=== PATIENT | female | born 1995 | race Caucasian/White ===

== ENCOUNTER 2020-05-31 15:17 | Outpatient (CLI) | payer OTHER, SELFPAY ==
--- NOTE | ~2020-05-31 | US_ITS ---
EXAMINATION: US OB <= 14 weeks fetus DATE: 05/31/2020 16:17 INDICATION: Amenorrhea. TECHNIQUE: Real-time transabdominal pelvic ultrasound was performed. COMPARISON: None. FINDINGS: The uterus measures 13.9 x 7.5 x 6.8 cm. There is an intrauterine gestational sac. A yolk sac is iden tified. The crown rump length measures 3.4 cm, which correlates with an estimated gestational age of 10 weeks and 2 day(s) (+/-) 6 day(s). heart motion is identified measuring 169 beats per minute (bpm) by M-mode Doppler. The right ovary measures 2.3 x 1.7 x 1.5 cm. The left ovary is not v isualized. There is no free fluid in the pelvis. IMPRESSION: 1. Single living intrauterine gestation with estimated date of delivery of 12/25/2020. Reviewed, dictated and finalized at location A. IMPRESSION: 1. Single living intrauterine gestation with estimated date of delivery of 12/25.
== END 2020-05-31 15:18 | disposition home or self-care (01) ==
PROVIDERS: Visit Provider Student in an Organized Health Care Education/Training Program
DX: N91.2 Amenorrhea, unspecified (principal)
CPT/HCPCS: 76801

== ENCOUNTER 2020-07-11 15:32 | Outpatient (CLI) | payer OTHER, SELFPAY ==
[2020-07-11 16:52] LABS: Add Urine Microscopic? NO; Appearance Urine Clear (Clear); Bilirubin Urine Negative (Negative); Blood Urine Negative (Negative); Color Urine Straw (Yellow); Glucose Urine UA Negative (Negative); Ketones Urine Negative (Negative); Leukocyte Esterase Ur Negative LEU/UL (NEGATIVE); Nitrate Urine Negative (Negative); Protein Urine Negative (Negative); Specific Grav Ur 1.013 (1.001-1.035); Urobilinogen Urine Negative mg/dL (<2.0)
[2020-07-11 17:42] LABS: Basophils Absolute Auto 0.1 K/mm3 (0.0-0.1); Basophils Percent Auto 0.5 % (0.2-1.2); Eosinophils Absolute Auto 0.1 K/mm3 (0-0.3); Eosinophils Percent Auto 0.9 % (0-4.4); Immature Granulocyte Absolute 0.05 K/mm3 (0.00-0.031); Immature Granulocyte Percent A 0.5 % (0-0.5); Lymphocytes Absolute Auto 2.37 K/mm3 (0.9-3.2); Lymphocytes Percent Auto 22.5 % (18.3-44.2); Mean Corpuscular HGB Conc 33.3 g/dl (32-36); Mean Corpuscular Hemoglobin 28.6 pg (26-34); Mean Corpuscular Volume 85.9 fl (80-100); Mean Platelet Volume 10.4 fl (7.4-10.4); Monocytes Absolute Auto 0.7 K/mm3 (0.1-0.6); Neutrophils Absolute Auto 7.2 K/mm3 (1.3-6.7); Neutrophils Percent Auto 68.6 % (45.5-73.1); Platelet Count Result 272 k/mm3 (150-375); Red Blood Count 3.84 M/mm3 (4.2-5.4); Red Cell Distribution Width 12.9 % (11.5-14.5); White Blood Count 10.5 K/mm3 (4.5-10.0)
[2020-07-11 17:51] LABS: Vitamin D 25 Hydroxy 45.1 ng/mL
[2020-07-11 18:07] LABS: Hepatitis B Surface Antigen Negative (Negative); Rubella IgG Antibody 4.4 IU/ML
[2020-07-11 18:23] LABS: Hepatitis C Virus Antibody Negative (Negative)
[2020-07-12 09:36] LABS: Rapid Plasma Reagin Non-Reactive (NonReactive)
[2020-07-14 14:38] LABS: Varicella IgG Antibody <135.00 Index (>=165.00)
[2020-07-17 10:03] LABS: Hematocrit 33.8 % (35.0-45.0); Hemoglobin 11.3 g/dL (11.7-15.5); MCV 86.9 FL (80.0-100.0); RDW 13.6 % (11.0-15.0); Red Blood Cell Count 3.89 Mill/uL (3.80-5.10)
== END 2020-07-11 15:33 | disposition home or self-care (01) ==
PROVIDERS: Family Provider Student in an Organized Health Care Education/Training Program; Visit Provider Student in an Organized Health Care Education/Training Program
DX: Z34.90 Encounter for supervision of normal pregnancy, unspecified, unspecified trimester (principal); Z3A.00 Weeks of gestation of pregnancy not specified
CPT/HCPCS: 36415; 81003; 82306; 83021; 84443; 85025; 86592; 86762; 86787; 86803; 87086; 87340

== ENCOUNTER 2020-09-11 08:58 | Outpatient (CLI) | payer OTHER, SELFPAY ==
[2020-09-11 10:40] LABS: Basophils Percent Auto 0.4 % (0.2-1.2); Eosinophils Absolute Auto 0.1 K/mm3 (0-0.3); Eosinophils Percent Auto 0.5 % (0-4.4); Hematocrit 26.1 % (37.0-47.0); Hemoglobin 8.3 g/dL (12.0-15.0); Immature Granulocyte Absolute 0.17 K/mm3 (0.00-0.031); Immature Granulocyte Percent A 1.5 % (0-0.5); Lymphocytes Absolute Auto 1.74 K/mm3 (0.9-3.2); Lymphocytes Percent Auto 15.4 % (18.3-44.2); Mean Corpuscular HGB Conc 31.8 g/dl (32-36); Mean Corpuscular Hemoglobin 26.9 pg (26-34); Mean Corpuscular Volume 84.7 fl (80-100); Mean Platelet Volume 9.4 fl (7.4-10.4); Monocytes Absolute Auto 0.7 K/mm3 (0.1-0.6); Monocytes Percent Auto 6.4 % (2.6-8.5); Neutrophils Absolute Auto 8.6 K/mm3 (1.3-6.7); Neutrophils Percent Auto 75.8 % (45.5-73.1); Platelet Count Result 259 k/mm3 (150-375); Red Blood Count 3.08 M/mm3 (4.2-5.4); Red Cell Distribution Width 13.2 % (11.5-14.5); White Blood Count 11.3 K/mm3 (4.5-10.0)
[2020-09-11 10:49] LABS: Glucose 1 Hour PP 50gm Dose 100 mg/dL
== END 2020-09-11 08:59 | disposition home or self-care (01) ==
PROVIDERS: Visit Provider Student in an Organized Health Care Education/Training Program
DX: Z34.90 Encounter for supervision of normal pregnancy, unspecified, unspecified trimester (principal)
CPT/HCPCS: 36415; 82947; 85025; 86850; 86900; 86901

== ENCOUNTER 2020-10-23 10:58 | Outpatient (CLI) | payer OTHER, SELFPAY ==
[2020-10-23 11:25] LABS: Basophils Absolute Auto 0.1 K/mm3 (0.0-0.1); Basophils Percent Auto 0.4 % (0.2-1.2); Eosinophils Absolute Auto 0.1 K/mm3 (0-0.3); Eosinophils Percent Auto 1.1 % (0-4.4); Hematocrit 26.2 % (37.0-47.0); Hemoglobin 8.2 g/dL (12.0-15.0); Immature Granulocyte Absolute 0.46 K/mm3 (0.00-0.031); Immature Granulocyte Percent A 3.7 % (0-0.5); Lymphocytes Absolute Auto 1.97 K/mm3 (0.9-3.2); Lymphocytes Percent Auto 15.9 % (18.3-44.2); Mean Corpuscular HGB Conc 31.3 g/dl (32-36); Mean Corpuscular Hemoglobin 25.2 pg (26-34); Mean Corpuscular Volume 80.4 fl (80-100); Monocytes Absolute Auto 1.1 K/mm3 (0.1-0.6); Monocytes Percent Auto 8.6 % (2.6-8.5); Neutrophils Absolute Auto 8.7 K/mm3 (1.3-6.7); Neutrophils Percent Auto 70.3 % (45.5-73.1); Nucleated Red Blood Cells Perc 0.2 % (0.0-0.2); Platelet Count Result 266 k/mm3 (150-375); Red Blood Count 3.26 M/mm3 (4.2-5.4); Red Cell Distribution Width 14.8 % (11.5-14.5); White Blood Count 12.4 K/mm3 (4.5-10.0)
[2020-10-23 12:21] LABS: Iron 29 ug/dL (37-170)
[2020-10-23 12:31] LABS: Percent Iron Saturation 5 % (20-50)
[2020-10-23 12:36] LABS: HIV 1/2 Ab P24 Ag Result Negative (Negative)
[2020-10-23 12:52] LABS: Ferritin 5.95 ng/mL (6.24-137)
[2020-10-24 13:34] LABS: Rapid Plasma Reagin Non-Reactive (NonReactive)
== END 2020-10-23 10:59 | disposition home or self-care (01) ==
LOC: ANHLAB 11:00
PROVIDERS: Visit Provider Student in an Organized Health Care Education/Training Program
DX: Z34.83 Encounter for supervision of other normal pregnancy, third trimester (principal); D64.9 Anemia, unspecified; Z3A.00 Weeks of gestation of pregnancy not specified
CPT/HCPCS: 36415; 82728; 83540; 83550; 85025; 86592; 86703; G0432

== ENCOUNTER 2020-12-14 05:54 | Inpatient (IN) | payer OTHER, SELFPAY ==
[2020-12-14] VITALS (77 sets, daily range): BP systolic 98–128; BP diastolic 28–88; PULSE 64–149; RESP 16–18; TEMP 36.4–37.2; O2SAT 97–100; BMI 35.5
--- NOTE | 2020-12-14 05:54 | LDADM ---
This patient, Duncan Reveles, was admitted to Labor/Delivery/Recovery 104 on 12/14/20 at 05:54. Plans for labor, pain management and were discussed with patient. Patient/family oriented to hospital policies and general routines including ID bracelet, bed and alarms, visiting hours, pain management, procedures, bathroom and other care routines, personal items, smoking policy, room service/diet and guest tray routines, security routines, and visiting hours. Patient/Family are encouraged to report perceived risks to care and to ask questions if they do not understand what they are told or what they should do. See OBIX for further documentation.
[2020-12-14 06:39] LABS: Basophils Absolute Auto 0.1 K/mm3 (0.0-0.1); Basophils Percent Auto 0.7 % (0.2-1.2); Eosinophils Absolute Auto 0.1 K/mm3 (0-0.3); Eosinophils Percent Auto 1.1 % (0-4.4); Hematocrit 33.7 % (37.0-47.0); Hemoglobin 10.4 g/dL (12.0-15.0); Immature Granulocyte Absolute 0.37 K/mm3 (0.00-0.031); Immature Granulocyte Percent A 3.8 % (0-0.5); Lymphocytes Absolute Auto 2.13 K/mm3 (0.9-3.2); Lymphocytes Percent Auto 21.8 % (18.3-44.2); Mean Corpuscular HGB Conc 30.9 g/dl (32-36); Mean Corpuscular Hemoglobin 24.7 pg (26-34); Monocytes Absolute Auto 0.8 K/mm3 (0.1-0.6); Monocytes Percent Auto 8.2 % (2.6-8.5); Neutrophils Absolute Auto 6.3 K/mm3 (1.3-6.7); Neutrophils Percent Auto 64.4 % (45.5-73.1); Nucleated Red Blood Cells Absolute Auto 0.1 K/mm3 (0.0-0.012); Nucleated Red Blood Cells Perc 0.5 % (0.0-0.2); Platelet Count Result 242 k/mm3 (150-375); Red Blood Count 4.21 M/mm3 (4.2-5.4); Red Cell Distribution Width 25.6 % (11.5-14.5); White Blood Count 9.8 K/mm3 (4.5-10.0)
[2020-12-14] MEDS: LACTATED RINGERS 1,000 ML 125 ML IV CONT ×2 (06:39→12:00)
[2020-12-14] MEDS: OXYTOCIN 30 UNITS/NS 500 ML 30 UNITS/500 ML BAG IV CONT (06:40)
[2020-12-14 06:59] LABS: Amphetamine Screen Urine Negative (Negative); Barbiturate Screen Urine Negative (Negative); Benzodiazepines Screen Urine Negative (Negative); Cannabinoid Screen Urine Negative (Negative); Cocaine Screen Urine Negative (Negative); Methadone Screen Urine Negative (Negative); Opiate Screen Urine Negative (Negative); Phencyclidine Screen Urine Negative (Negative)
--- NOTE | 2020-12-14 07:19 | WPDANESEPP ---
Anes - Eval Pre Procedure Procedure: labor epidural Date/Time: 12/14/20 07:19 Pre Op Diagnosis: Induction of Labor Patient Data Age: 25 Gender: F Height: 1.52 m Weight: 82.5 kg Last Vital Signs Pulse 102 H 12/14/20 07:16 BP 107/65 12/14/20 07:16 Allergies Allergy/AdvReac Type Severity Reaction Status Date / Time No Known Allergies Allergy Verified 12/14/20 07:12 Home Medications Medication Instructions Recorded Confirmed Type cetirizine 10 mg capsule 10 mg PO DAILY 05/17/20 12/14/20 History vit 123-iron 28 mg-folic 1 cap PO DAILY 05/17/20 12/14/20 History acid 800 [id number] 235 mg capsule fluticasone propionate [Flonase] 1 spray INTRANASAL DAILY 11/21/20 12/14/20 History esomeprazole magnesium [Nexium] 20 mg PO DAILY 11/27/20 12/14/20 History bisacodyl 1 ea PO DAILY 11/30/20 12/14/20 History bupropion HCl 150 mg 24 hr tablet, 150 mg PO QAM 11/30/20 12/14/20 History extended release Laboratory Tests 12/14/20 12/14/20 12/14/20 06:25 06:25 06:25 WBC 9.8 K/mm3 K/mm3 (4.5-10.0) RBC 4.21 M/mm3 M/mm3 (4.2-5.4) Hgb 10.4 g/dL L g/dL (12.0-15.0) Hct 33.7 % L % (37.0-47.0) MCV 80.0 fl fl (80-100) MCH 24.7 pg L pg (26-34) MCHC 30.9 g/dl L g/dl (32-36) RDW 25.6 % H % (11.5-14.5) Plt Count 242 k/mm3 k/mm3 (150-375) MPV 10.0 fl fl (7.4-10.4) Immature Gran % (Auto) 3.8 % H % (0-0.5) Neut % (Auto) 64.4 % % (45.5-73.1) Lymph % (Auto) 21.8 % % (18.3-44.2) Cedar % (Auto) 8.2 % % (2.6-8.5) Eos % (Auto) 1.1 % % (0-4.4) Baso % (Auto) 0.7 % % (0.2-1.2) Lymph # (Auto) 2.13 K/mm3 K/mm3 (0.9-3.2) Cedar # (Auto) 0.8 K/mm3 H K/mm3 (0.1-0.6) Eos # (Auto) 0.1 K/mm3 K/mm3 (0-0.3) Baso # (Auto) 0.1 K/mm3 K/mm3 (0.0-0.1) Abs Immat Gran (auto) 0.37 K/mm3 H K/mm3 (0.00-0.031) Absolute Neuts (auto) 6.3 K/mm3 K/mm3 (1.3-6.7) Absolute Nucleated RBC 0.1 K/mm3 H K/mm3 (0.0-0.012) Nucleated RBC % 0.5 % H % (0.0-0.2) Urine Opiates Screen Negative (Negative) Urine Methadone Screen Negative (Negative) Ur Barbiturates Screen Negative (Negative) Ur Phencyclidine Scrn Negative (Negative) Ur Amphetamine Screen Negative (Negative) U Benzodiazepines Scrn Negative (Negative) Urine Cocaine Screen Negative (Negative) U Cannabinoids Screen Negative (Negative) RPR Pending Patient hx anesthesia problems: none Family hx anesthesia problems: none PMFSH Past Medical History Medical History Depression Miscarriage Vaginal delivery Surgical History Surgical History [place] teeth removed Family History Family History Grandparent Ovarian cancer Breast cancer Crohn disease High cholesterol Lung cancer Mother B12 deficiency Social History Social History Smoking status: Former smoker Alcohol intake: former Substance use: never Substance use type: marijuana Gender identity (if verbalized by the patient): Female Spiritual care concerns: No Exam Day of Procedure 12/14/20 07:19 Patient weight: obese Heart: regular rate and rhythm Lungs: normal air movement Airway: Mallampati scale Neurological: alert and oriented
--- NOTE | 2020-12-14 09:56 | PM.IMHP ---
H&P: HPI History of Present Illness Date/Time: 12/14/20 09:56 The patient is a 25-year-old currently 39 weeks gestation with an EUGENIA of December 21, 2020. Last menstrual period was March 16, 2020. Patient is dated by last menstrual period consistent with an ultrasound on May 31, 2020 at 10 weeks gestation. Patient presents to Labor and delivery for a scheduled elective induction of labor. Patient reports feeling well today. Reports occasional contractions. Denies any vaginal bleeding or leakage of fluid. Reports good movement Chief Complaint: Induction of labor Narrative: Duncan Reveles is a 25 year old female Review of Systems Review of Systems: All systems reviewed & are unremarkable except as noted in HPI and below Constitutional: Constitutional: Reports as per HPI, Reports no additional constitutional complaints, Denies chills, Denies fever(s), Denies headache(s) and Denies night sweats Eyes: Eyes: Reports as per HPI and Reports no additional eye complaints ENT: Reports system reviewed and no additional complaints, except as documented, Reports as per HPI, Reports Normal hearing present and Denies headache(s) Cardiovascular: Cardiovascular: Reports as per HPI, Reports no additional cardiovascular complaints, Denies chest pain and Denies dyspnea Respiratory: Respiratory: Reports as per HPI, Reports no additional respiratory complaints, Denies cough and Denies dyspnea Gastrointestinal: Gastrointestinal: Reports as per HPI, Reports no additional gastrointestinal complaints, Denies abdominal pain, Denies change in bowel habits, Denies change in stool character, Denies nausea and Denies vomiting Genitourinary: Genitourinary: Reports no additional female genitourinary complaints, Reports as per HPI, Denies abnormal vaginal bleeding, Denies genital lesions, Denies hot flashes, Denies dyspareunia, Denies pelvic pain, Denies sexual dysfunction, Denies urinary incontinence, Denies vaginal discharge, Denies vaginal dryness and Denies vaginal odor Musculoskeletal: Musculoskeletal: Reports no additional musculoskeletal complaints and Reports as per HPI Integumentary/Breasts: Skin/Breast: Reports system reviewed and no additional complaints, except as docu, Reports as per HPI, Denies breast pain and Denies nipple discharge Neurologic: Reports system reviewed and no additional complaints, except as documented, Reports as per HPI, Reports Normal hearing present and Denies headache(s) Psychiatric: Psychiatric: Reports no additional psychiatric complaints, Reports as per HPI, Denies anxiety and Denies depression Endocrine: Endocrine: Reports no additional endocrine complaints and Reports as per HPI Hematologic/Lymphatic: Hematologic/Lymphatic: Reports no additional hematologic/lymphatic complaints and Reports as per HPI Allergic/Immunologic: Allergic/Immunologic: Reports no additional allergic/immunologic complaints and Reports as per HPI PMFSH Past Medical History Medical History (Updated 12/14/20 @ 10:05 by Shital Wesley MD) Depression Miscarriage Vaginal delivery Surgical History Surgical History [place] teeth removed Family History Family History Grandparent Ovarian cancer Breast cancer Crohn disease High cholesterol Lung cancer Mother B12 deficiency Social History Social History Smoking status: Former smoker Alcohol intake: former Substance use: never Substance use type: marijuana Gender identity (if verbalized by the patient): Female Spiritual care concerns: No Meds Home Medications and Allergies Home Medications Medication Instructions Recorded Confirmed Type cetirizine 10 mg capsule 10 mg PO DAILY 05/17/20 12/14/20 History vit 123-iron 28 mg-folic 1 cap PO DAILY 05/17/20 12/14/20 History acid 800 [id number] 235
--- NOTE | 2020-12-14 10:06 | WPDHPUPDATE1 ---
History and Physical Update Update Date/Time: 12/14/20 10:06 History and Physical has been reviewed, including an updated exam of the patient. There are NO changes in the patient's condition. Risks, benefits, and alternatives have been discussed and questions answered. Patient agrees to proceed with procedure.
[2020-12-14] MEDS: fentaNYL CITRATE INJ (*CRX) 100 MCG/2 ML VIAL 50 MCG IV PUSH (10:25)
[2020-12-14] MEDS: miSOPROStol 200 MCG TABLET 800 MCG (13:02)
[2020-12-14] MEDS: METHYLERGONOVINE MALEATE 0.2 MG/ML VIAL (13:13)
--- NOTE | 2020-12-14 13:15 | PM.OBPRVD ---
OB - Delivery Note Procedure Delivery date: 12/14/20 Procedure: The patient is 25-year-old now who presented to labor and delivery on the morning of 12/14/2019 for a scheduled elective induction of labor at 39 weeks gestation. Initial cervical exam was 3 cm dilated. Induction of labor was started with Pitocin. The patient began fiordaliza regularly. Artificial rupture membranes was performed at 9:49 a.m. Clear amniotic fluid was noted. Pitocin was continuously titrated throughout the remainder of the morning. Patient became increasingly uncomfortable and requested an epidural for pain management, which was placed without difficulty. Patient made progressive cervical change and was noted to be fully dilated at 12:33 p.m. She was encouraged to push and found to be pushing well. the patient was prepped and draped for delivery. At 12:46 p.m., the patient delivered infant head in KEVIN presentation atraumatically and without difficulty. Occiput restituted to maternal left side. With subsequent push, the 's neck, shoulders, and rest of body were delivered without difficulty. Infant was crying spontaneously. Nose and mouth were suction with bulb suction and was placed on maternal abdomen. Care was assumed by waiting nursing staff. Delayed cord clamping was performed for approximately 60 seconds. The cord was clamped and cut. A segment of cord was collected for cord gases. Cord blood was collected. The placenta was delivered spontaneously and noted to be intact. Bimanual massage was performed and uterus was noted to be mildly boggy. Uterus became firm with massage. On inspection, a first-degree perineal laceration was noted. This laceration was repaired with 2 -0 Vicryl in the usual fashion. Moderate amount of Bleeding was noted from the vagina. Uterus was again felt to be mildly boggy. Straight catheterization was performed with approximately 50 cc of clear urine returned. Cytotec 800 mcg per rectum x1 dose as well as Methergine 0.2 mg IM x1 dose was administered after which uterus became firm and bleeding subsided. Estimated blood loss for entire delivery was 400 cc. The infant was a live-born male infant, apgars 8 and 9, weighing 8 lb 1 oz. Both mother and baby doing well at and delivery. events: Labor Induction Induction method: per pitocin protocol Delivery augmentation: rupture of membranes Delivery monitor: external FHT and external uterine Route of delivery: Laceration Description: Perineal - 1st Degree Delivery repair: vicryl (2-0 vicryl) Specimen: No Quantitative Blood Loss (ml): 400 Anesthesia type: Epidural Disposition: floor Complications: Pt with mild uterine atony. Cytotec 800mcg [place] x 1 dose and Methergine 0.2mg IM x 1 dose administered. Jeff Baby Date of : 12/14/20 Time of : 12:46 Weeks of gestation at delivery: 39 gender: Male Weight (pounds): 8 Weight (ounces): 1 presentation: vertex position: Left Occiput Anterior Placenta delivery description: Spontaneous cord vessel description: 3 Vessels and Delayed Cord Clamping score one minute: 8 score five minutes: 9
[2020-12-14] MEDS: OXYTOCIN 30 UNITS/NS 500 ML 30 UNITS/500 ML BAG 125 UNITS IV CONT (13:20)
[2020-12-14] MEDS: BENZOCAINE 20% AER SPR (*SP) 56 GM CAN 1 SPRAY TOPICAL (14:53)
[2020-12-14] MEDS: IBUPROFEN 600 MG TABLET PO ×2 (14:53→20:41)
[2020-12-14] MEDS: WITCH HAZEL 40 PADS 1 PAD TOPICAL (14:53)
[2020-12-14] MEDS: ACETAMINOPHEN 325 MG TABLET 650 MG PO (17:44)
--- NOTE | 2020-12-14 18:56 | PC.NURSE ---
Patient transferred to post room #283 via wheelchair. Support person present. Oriented to unit, room, information board, rooming in, admission packet and security measures. Patient verbalizes understanding.
[2020-12-14] MEDS: HYDROcodone/acetaminophen (*CRX) 5-325 MG TABLET 1 TAB PO (22:59)
[2020-12-14] MEDS: DOCUSATE SODIUM 100 MG CAPSULE PO (23:00)
[2020-12-15] MEDS: TETANUS,DIPHTHERIA,AC PERTUSSIS ADULT (0.5 ML) BOOSTRIX IM (05:04)
[2020-12-15] MEDS: HYDROcodone/acetaminophen (*CRX) 5-325 MG TABLET 1 TAB PO (05:09)
[2020-12-15 05:18] LABS: Hemoglobin 10.7 g/dL (12.0-15.0)
[2020-12-15 08:05] VITALS: BP 121/69; PULSE 79; RESP 16; TEMP 36.4
[2020-12-15] MEDS: IBUPROFEN 600 MG TABLET PO ×2 (08:05→16:44)
[2020-12-15] MEDS: DOCUSATE SODIUM 100 MG CAPSULE PO ×2 (08:05→16:40)
[2020-12-15] MEDS: buPROPion HCL XL (24 HR) 150 MG TABCR PO (08:05)
[2020-12-15] MEDS: MULTIVIT/MIN/PREN/FOL AC/IRON TABLET 1 TAB PO (08:05)
--- NOTE | 2020-12-15 09:47 | WPDANLDPN2 ---
Anes-Prog Note L&D Date/Time: 12/15/20 09:47 Comfortable throughout: labor and delivery Neuraxial method: epidural Epidural/Spinal procedure site: clean & non-tender Neuro status: Neuro function grossly intact. Cardiovascular status: normal Respiratory status: normal Airway patency: baseline Mental status: baseline Post-Op hydration status: normal Vital Signs: Last Vital Signs Temp 36.4 C L 12/15/20 08:05 Pulse 79 12/15/20 08:05 Resp 16 12/15/20 08:05 BP 121/69 12/15/20 08:05 Pulse Ox 98 12/14/20 20:00 Pain score (VAS): 1 I/O: Intake & Output 12/14/20 12/15/20 12/15/20 23:59 07:59 15:59 Intake Total 500 Balance 500 Post-procedural complaints: none Patient feedback: Patient satisfied with anesthetic care.
--- NOTE | 2020-12-15 11:14 | PM.OBPNVD ---
OB - PN: Subj Subjective Date/time seen: 12/15/20 11:14 Patient comments: no complaints, pain well controlled and other (Lochia similar to menses) [place] baby status: doing well OB - PN: Obj Data Labs CBC & Chem 7: 12/15/20 05:02 Labs: Laboratory Results - last 24 hr 12/15/20 05:02 Hgb 10.7 L Hct 34.0 L OB - PN A/P Plan day: 1 (s/p vaginal delivery, doing well) Plan: routine care Time Spent With Patient Time: Total time spent is greater than 50% in coordination of care (as documented) at patient's floor/unit and/or counseling patient: Exam Const: General: no acute distress GI: Inspection: other (Fundus firm and nontender at umbilicus) GI Palp: Yes Soft to palpation and No Tenderness to palpation present (GI) Extrem: General: no edema
--- NOTE | 2020-12-15 11:18 | PM.OBDSVD ---
DS: Admitting Diagnosis Admitting Diagnosis Admitting Diagnosis: Induction of labor DS: Discharge Diagnosis Discharge Diagnosis (1) Encounter for induction of labor: Code(s): Z34.90 - Encounter for supervision of normal , unspecified, unspecified trimester Status: Acute (2) Anemia affecting in third trimester: Code(s): O99.013 - Anemia complicating , third trimester Status: Acute OB - DS: Summary OB Procedures : None OB Procedures Intrapartum: Spontaneous Vag Delivery OB Procedures: : None Peripartum Data Infant Delivery Method: Natural Vaginal complications: none Status at Discharge Functional status at discharge: independent ambulation Overall status at discharge: patient is progressing back to baseline Time Spent with Patient Time attestation: Total time spent providing and/or coordinating discharge services: Time spent: Less than 30 minutes DS: Data Data Completed and Pending Labs on day of discharge: Labs from last 24 hours 12/15/20 05:02 Hgb 10.7 L Hct 34.0 L Discharge Plan Discharge Attending physician on discharge: Shital Wesley Consulting providers: Earnest Mendoza ; Discharging Clinician: Sonia Horowitz Anticipated Discharge Date/Time: 12/16/20 11:00 Patient Disposition: Home, Self-Care Activity: may shower and pelvic rest Diet: as tolerated Patient Instructions: Antibiotic Form Stand Alone Forms: General Discharge Information Follow-up/Referrals: Shital Wesley MD [Physician] - 4 Weeks Discharge Medications: New ibuprofen 600 mg Tablet 600 mg PO Q6H PRN (Reason: Cramping) Qty: 60 RF: 0 Continued fluticasone propionate [Flonase] 50 mcg/actuation [place],Suspension 1 spray INTRANASAL DAILY RF: 0 esomeprazole magnesium [Nexium] 20 mg Capsule,Delayed Release(Dr/Ec) 20 mg PO DAILY RF: 0 One-A-Day Women's 1 28 mg iron- 800 mcg-235 mg capsule 1 cap PO DAILY RF: 0 Zyrtec 10 mg capsule 10 mg PO DAILY RF: 0 bisacodyl Kit 1 ea PO DAILY RF: 0 bupropion HCl [Wellbutrin XL] 150 mg tablet extended release 24 hr 150 mg PO QAM RF: 0 Date of admission: 12/14/20 05:54 Primary Care Provider: PHYSICIAN,BLADDER BLOWER Admitting Provider: Shital Wesley Attending physician on admission: Shital Wesley Condition: Stable
[2020-12-15] MEDS: BISACODYL 10 MG SUPPOSITORY RECTAL (11:23)
[2020-12-15] MEDS: ACETAMINOPHEN 325 MG TABLET 650 MG PO (13:14)
[2020-12-15] MEDS: MEASLES,MUMPS,RUBELLA VACCINE 0.5 ML VIAL SUB-Q (16:39)
[2020-12-15 20:00] VITALS: BP 111/62; PULSE 71; RESP 16; TEMP 36.8; O2SAT 99
[2020-12-16] MEDS: IBUPROFEN 600 MG TABLET PO ×2 (01:21→07:28)
[2020-12-16 07:20] VITALS: BP 121/81; PULSE 89; RESP 20; TEMP 36.5
[2020-12-16] MEDS: MULTIVIT/MIN/PREN/FOL AC/IRON TABLET 1 TAB PO (07:28)
[2020-12-16] MEDS: DOCUSATE SODIUM 100 MG CAPSULE PO (07:28)
[2020-12-16 07:30] VITALS: RESP 18
[2020-12-16] MEDS: buPROPion HCL XL (24 HR) 150 MG TABCR PO (08:56)
--- NOTE | 2020-12-16 09:48 | P.PNOB_ITS ---
OB - PN: Subj Subjective Date/time seen: 12/16/20 09:48 Patient comments: no complaints, pain well controlled and other (Lochia similar to menses) [place] baby status: doing well OB - PN: Obj Data Labs CBC & Chem 7: 12/15/20 05:02 OB - PN A/P Plan day: 2 (s/p vaginal delivery, doing well) Plan: routine care, discharge home and other (Follow up in office in 4 weeks) Time Spent With Patient Time: Total time spent is greater than 50% in coordination of care (as documented) at patient's floor/unit and/or counseling patient: Exam Const: General: no acute distress GI: Inspection: other (Fundus firm and nontender below umbilicus) GI Palp: Yes Soft to palpation and No Tenderness to palpation present (GI) Extrem: General: no edema
[2020-12-17 07:31] LABS: Rapid Plasma Reagin Non-Reactive (NonReactive)
[2020-12-17 11:14] VITALS: BP 108/71; PULSE 100; RESP 20; TEMP 36.9; O2SAT 100
== END 2020-12-16 13:58 | disposition home or self-care (01) | DRG 560 ==
LOC: ANHLDR 11:58 → ANHOB2 12-15 11:19 → ANHLDR 12-19 07:43 → ANHOB2 12-19 07:43
PROVIDERS: Admitting Provider Student in an Organized Health Care Education/Training Program; Visit Provider Obstetrics & Gynecology
DX: O99.02 Anemia complicating childbirth (principal); Z37.0 Single live birth; Z3A.39 39 weeks gestation of pregnancy; Z23 Encounter for immunization; D64.9 Anemia, unspecified; O70.0 First degree perineal laceration during delivery; O99.214 Obesity complicating childbirth; E66.9 Obesity, unspecified
CPT/HCPCS: 36415; 80307; 85014; 85018; 85025; 86592; 86850; 86900; 86901; 90471; 90653; 90710; 90715; A9270; G0008; J2210; J2590; J2795; J3010; J7120

== ENCOUNTER 2021-02-04 17:39 | Outpatient (CLI) | payer OTHER, SELFPAY ==
[2021-02-04 18:31] LABS: Beta HCG Quantitative < 2.39 mIU/ML
== END 2021-02-04 17:40 | disposition home or self-care (01) ==
LOC: ANHLAB 17:41
PROVIDERS: Visit Provider Student in an Organized Health Care Education/Training Program
DX: Z30.017 Encounter for initial prescription of implantable subdermal contraceptive (principal)
CPT/HCPCS: 36415; 84702